=== PATIENT | male | born 2000 | race Hispanic/Latino ===

== ENCOUNTER 2024-08-09 20:17 | Emergency (ER) | payer BC ==
[~2024-08-09] VITALS: Ht 180.3 cm; Wt 136.1 kg
[2024-08-09 20:19] VITALS: BP 152/81; PULSE 80; RESP 18; TEMP 96.6
[2024-08-09 21:04] LABS: APPEARANCE,URINE CLEAR (CLEAR); BILIRUBIN,URINE NEGATIVE (NEGATIVE); COLOR,URINE LIGHT-YELLOW (YELLOW); GLUCOSE, URINE (UA) NEGATIVE (NEGATIVE); KETONES,URINE 5 mg/dL (NEGATIVE); LEUKOCYTE ESTERASE ,URINE NEGATIVE Leu/uL (NEGATIVE); NITRATE,URINE NEGATIVE (NEGATIVE); OCCULT BLOOD,URINE NEGATIVE (NEGATIVE); PH,URINE 6.5 (5.0-8.0); PROTEIN,URINE NEGATIVE (NEGATIVE); UROBILINOGEN,URINE 0.2 mg/dL (0.2-1.0)
[2024-08-09 21:08] LABS: ADD UA MICROSCOPIC YES
[2024-08-09 21:09] LABS: RBC,URINE 0-1 /HPF (0-1); SQUAMOUS EPITHELIAL CELL,UR RARE /HPF (0-2)
--- NOTE | 2024-08-09 21:16 | HMCIMG ---
US SCROTUM & CONTENTS HISTORY: left testicular pain r/o torsion TECHNIQUE: US SCROTUM & CONTENTS. B mode, color flow and spectral analysis was performed. FINDINGS: RIGHT TESTICLE: measures 5.4 cm. Vascular flow is seen. No evidence of hydrocele or varicocele. The epididymis demonstrates echogenicity within normal limits. LEFT TESTICLE: measures 5.5 cm. Vascular flow is seen. There is no hydrocele. There is a varicocele measuring 4 mm. Slight increased vascularity of the epididymis is seen. The epididymis demonstrates echogenicity within normal limits. IMPRESSION: Vascular flow was seen in both testicles at this time. Slight increase vascularity of the left epididymis which may may represent epididymitis in the proper clinical setting. Left varicocele.
--- NOTE | 2024-08-09 21:25 | ERN ---
General Chief Complaint: Testicular Injury/Pain Stated Complaint: C/O PAIN TO LEFT TESTICLE Time Seen by MD: 20:20 Time Seen by Midlevel: 20:20 Source: patient History of Present Illness Initial Comments Patient is a 24-year-old male with no significant past medical history presented to the emergency department with a sudden onset of left testicular pain that started1 hour prior to arrival. Patient denies direct injury to the area. Patient was concerned that he may have testicular torsion. He denies any dysuria, hematuria, or any other symptoms at this time. Allergies: Coded Allergies: No Known Allergies (Unverified Allergy, Unknown, 08/09/24) Past Medical History Past Medical History: No Pertinent History Past Surgical History: None ROS Dictation CONSTITUTIONAL: Negative except for HPI HEAD/FACE: Negative except for HPI EENT: Negative except for HPI RESPIRATORY: Negative except for HPI GASTROINTESTINAL/ABDOMINAL: Negative except for HPI GENITOURINARY: Negative except for HPI MUSCULOSKELETAL: Negative except for HPI INTEGUMENTARY: Negative except for HPI NEUROLOGICAL/PSYCH: Negative except for HPI HEMATOLOGIC/LYMPHATIC: Negative except for HPI All Systems Negative, Except as noted above. 13 point review of systems assessed and all negative except for above. Physical Exam Physical Exam Dictation Vital Signs reviewed General Appearance: Alert, oriented x 3, no acute distress, well developed, nourished. Head and Face: non-traumatic. Eyes: PERRL, pink conjunctivas, eyelid no trauma, anterior chamber with arcus senilis. Ears: Pinnas intact and no signs of trauma or erythema ear canals clear and no discharge TM no erythema Nose: No discharge, no bleeding. Oropharynx: Mouth normal, tongue pink, pharynx clear,no erythema, tonsils no exudates, no abscesses noted, mucous membrane moist Neck: Supple, non-tender, no thyromegaly, no masses, no JVD, no bruits Breast:Deferred Chest:No tenderness, no crepitus, no paradoxical movement, no retractions Lungs:Clear, well-ventilated, symmetric, no rales, no wheezing, no rhonchi, no stridor, good breath sounds bilaterally Heart: Regular rate, regular rhythm, no murmur, no gallops Vascular: no peripheral edema, Abdomen: Soft, positive bowel sounds, nondistended, no guarding, nontender, no rebound, no masses no hepatomegaly, no splenomegaly, no Avery's sign, no hernias. Rectal: Deferred Genital: Scrotal exam was performed with MICHAEL Weldon at bedside. There are no obvious signs of external swelling to the scrotum, there was no high-riding testicle, cremasteric reflexes positive, no lesions or abnormal discharge from the penis is noted. Neurological: Normal speech, motor function intact, sensory function intact Musculoskeletal: Neck nontender, full range of motion, back nontender, full range of motion, Extremities: nontender, full range of motion Skin: Color pink, dry, no turgor, no rash, no lacerations, no abrasions, no contusions. Lymphatic: Deferred Results Laboratory and Microbiology Lab and Micro Result Laboratory Tests Test 08/09/24 20:51 Urine Color LIGHT-YELLOW (YELLOW) Urine Appearance CLEAR (CLEAR) Urine pH 6.5 (5.0-8.0) Urine Specific [place] 1.029 (1.001-1.031) Urine Protein NEGATIVE mg/dL (NEGATIVE) Urine Glucose (UA) NEGATIVE mg/dL (NEGATIVE) Urine Ketones 5 mg/dL (NEGATIVE) H Urine Occult Blood NEGATIVE (NEGATIVE) Urine Nitrate NEGATIVE (NEGATIVE) Urine Bilirubin NEGATIVE mg/dL (NEGATIVE) Urine Urobilinogen 0.2 mg/dL (0.2-1.0) Urine Leukocyte Esterase NEGATIVE Kalie/uL Urine RBC 0-1 /HPF (0-1) Urine WBC None /HPF (0-1) Urine Squamous Epithelial Cells RARE /HPF (0-2) Urine Bacteria None /HPF (None Seen) MDM MDM: Patient is a 24-year-old male with no significant past medical history presented to the emergency department with a sudden onset of left testicular pain that started1 hour prior to arrival. Patient denies direct injury to the area. Patient was concerned that he may have testicular torsion. He denies any dysuria, hematuria, or any other symptoms at this time. On physical examination there are no obvious signs of external swelling to the scrotum, there was no high-riding testicle, cremasteric reflexes positive, no lesions or abnormal discharge from the penis is noted. There is a concern for testicular torsion so an ultrasound was ordered which shows normal blood flow to bilateral testicles. There is a left varicocele which could explain the patient's symptoms. His urinalysis does not show any evidence of infection so epididymitis is less likely. Patient will be discharged home with supportive management was advised to follow up with Urology outpatient. Differential diagnosis: Testicular torsion, varicocele, hydrocele There are no social concerns with this patient. Prescription drug management Prescriptions will include: None Medical management and examination interpretation discussions were had by me with other qualified healthcare professionals as indicated for the patient's c are. ED Course Orders Procedure Category Date Status Time Us Scrotum & Contents US 08/09/24 Resulted 20:28 Urinalysis Profile LAB 08/09/24 Complete 20:28 Vital Signs Date Time Temp Pulse Resp B/P (MAP) Pulse Ox O2 Delivery O2 Flow Rate FiO2 08/09/24 20:19 96.6 80 18 152/81 98 Room Air [facility] [address] [address] IMAGING REPORT Signed PATIENT: SONAM HUMPHRIES MR#: [id number] : 2000 SEX: M AGE: 24 LOCATION: [facility] ORDER 28 STATUS: REG ER REPORT#: [id number] SERVICE 27 REASON: left testicular pain r/o torsion ORDERING PHYSICIAN: AJ MO PROCEDURE: SCROTUM - US SCROTUM & CONTENTS US SCROTUM & CONTENTS HISTORY: left testicular pain r/o torsion TECHNIQUE: US SCROTUM & CONTENTS. B mode, color flow and spectral analysis was performed. FINDINGS: RIGHT TESTICLE: measures 5.4 cm. Vascular flow is seen. No evidence of hydrocele or varicocele. The epididymis demonstrates echogenicity within normal limits. LEFT TESTICLE: measures 5.5 cm. Vascular flow is seen. There is no hydrocele. There is a varicocele measuring 4 mm. Slight increased vascularity of the epididymis is seen. The epididymis demonstrates echogenicity within normal limits. IMPRESSION: Vascular flow was seen in both testicles at this time. Slight increase vascularity of the left epididymis which may may represent epididymitis in the proper clinical setting. Left varicocele. DICTATED BY: PAM OLIVO MD DATE: 08/09/242111 ELECTRONICALLY SIGNED BY: PAM OLIVO MD DATE: 08/09/242115 DX & DISP Disposition: Discharge Departure Impression: Primary Impression: Left varicocele Condition: Stable Additional Instructions: Your scrotal ultrasound reveals normal blood flow to both testicles. Your ultrasound also reveals a left varicocele. A varicocele is an enlargement of the veins within the scrotum. If your symptoms persist you will need to see a urologist. I have given you a referral to see Dr. Suggs. Your urinalysis does not show any evidence of infection. You may use scrotal support to provide relief. Follow up with your primary care doctor in two three days for repeat evaluation Referrals: KAY SUGGS MD Time of Disposition: 21:22 I have reviewed the case, and I agree with, Diagnosis and Plan I performed the substantive portion of the visit. I have reviewed and personally made and approve the management plan that is documented in the note by myself or the DARRION. I acknowledge for responsibility for the patient's management plan. AJ MO Aug 09, 2024 21:25
== END 2024-08-09 21:34 | disposition home or self-care (01) ==
LOC: EDH 20:17
DX: I86.1 Scrotal varices (principal)
CPT/HCPCS: 76870; 81001; 99284